=== PATIENT | female | born 1990 | race Caucasian/White ===

== ENCOUNTER → 2017-05-26 | Outpatient (CLI) | payer BC ==
--- NOTE | 2017-05-30 10:08 | MRI ---
HISTORY: Low back pain. Patient has history of fall with fracture of coccyx 8 years ago Study: Noncontrast MRI lumbar spine Comparison: No priors Technique: Multiplanar multi-sequence MRI of the lumbar spine was obtained. Sagittal T1, sagittal T2 , and stir weighted images, axial T1, and axial T2 images were obtained. Findings: The lumbar spine demonstrates normal alignment with the expected signal characteristics of the bone m arrow. The conus of the cord terminates normally. There is disc desiccation at L5-S1. T12 -- L1: Unremarkable L1 -- L2: Unremarkable L2 -- L3: Unremarkable L3 -- L4: Unremarkable L4 -- L5: Tiny midline disc protrusion without nerve root impingement L5 -- S1: Disc desiccation with a broad subarticular left-sided disc protrusion with foraminal stenos is and likely impingement of the exiting nerve root. No central spinal stenosis is seen. The right ne ural foramina is patent. IMPRESSION: No fracture or subluxation. Disc desiccation with a broad left subarticular disc protrusion with foraminal stenosis and likely ex iting nerve root impingement. These findings are present L5-S1. Reported By:
== END | disposition home or self-care (01) ==
LOC: RAD 15:16
PROVIDERS: ATTEND Internal Medicine
DX: M54.5 Low back pain (principal); M48.07 Spinal stenosis, lumbosacral region
CPT/HCPCS: 72148

== ENCOUNTER 2022-01-22 06:17 | Inpatient (IN) ==
[2022-01-22] MEDS ORDERED: BETADINE SOLN ONE (06:27)
[2022-01-22] MEDS ORDERED: D5 1/2 NS 1,000 ML 1,000 ML IV ONE (06:27)
[2022-01-22] MEDS ORDERED: PITOCIN ONE (06:27)
[2022-01-22] MEDS ORDERED: D5 LR + PITOCIN 10 UNITS/L 10 UNITS/1,000 ML BAG IV ONE (06:28)
[2022-01-22] MEDS ORDERED: D5 1/2 NS 1,000 mL + PITOCIN 20 UNITS/L IV 20 UNITS/1,000 ML BAG IV ONE (06:28)
[2022-01-22] MEDS ORDERED: STADOL INJ IVP PRN (06:30)
[2022-01-22] MEDS: AMPICILLIN VIAL 1 GRAM 1 G in NS 50 ML IV + SPIKE MINIBAG* 50 ML IV SCH ×3 (07:00→12:48)
[2022-01-22] MEDS ORDERED: REGLAN INJ 10 MG VIAL IVP PRN (07:01)
[2022-01-22] MEDS ORDERED: AMPICILLIN VIAL 2 GRAM 2 G in NS 100 ML IV + SPIKE MINIBAG* 100 ML IV SCH (07:01)
[2022-01-22] MEDS ORDERED: PHENERGAN INJ 25 MG IM PRN ×2 (07:01→12:37)
[2022-01-22] MEDS ORDERED: PITOCIN IVP ONE (07:01)
[2022-01-22] MEDS ORDERED: D5 LR + PITOCIN 10 UNITS/L 10 UNITS/1,000 ML BAG IV PRN (07:01)
[2022-01-22] MEDS ORDERED: NUBAIN INJ 200 MG VIAL MULTIDOSE IVP PRN (07:01)
[2022-01-22] MEDS ORDERED: D5 1/2 NS 1,000 ML 1,000 ML IV SCH (07:01)
[2022-01-22] MEDS ORDERED: MORPHINE SULFATE INJ 2 MG INJ IVP PRN (07:01)
--- NOTE | 2022-01-22 07:04 | DR.OB ---
OB Quick Note - Assessment/Plan Assessment/Plan: L&D 01/22/22 at 6:50am S-No complaint. O-Afebrile,VSS SCA=[id number] with good LTV, +accel, no decel. CTX=mild uterine irritability CVX=3cm/50%/-1/VTX AROM with clear fluid. IUPC and FSE placed. A-IUP at 39 3/7 weeks for induction +GBS Rh- P-Begin pitocin induction IV ABX in labor for +GBS Anticipate
[2022-01-22] MEDS ORDERED: AMPICILLIN VIAL 2 GRAM ONE (07:09)
[2022-01-22] MEDS ORDERED: NS 100 ML IV 100 ML ONE (07:09)
[2022-01-22] MEDS ORDERED: REGLAN INJ 10 MG VIAL ONE (07:59)
[2022-01-22] MEDS ORDERED: LR 1,000 ML IV 1,000 ML IV ONE (08:05)
[2022-01-22] MEDS ORDERED: ZOFRAN INJ 4 MG VIAL ONE (08:20)
[2022-01-22] MEDS ORDERED: FENTANYL VIAL INJ 100 mcg ONE ×2 (08:21)
[2022-01-22] MEDS ORDERED: NAROPIN EPIDURAL 0.2% 100 ML ONE (08:21)
--- NOTE | 2022-01-22 12:44 | DR.OB ---
OB Quick Note - Assessment/Plan Assessment/Plan: Delivery Note [facility] 01/22/22 at 12:20pm Patient complete and pushing. Head delivered over intact perineum. Compound presentation with left hand at head. No nuchal cord. Nose and mouth bulb suctioned. Body delivered over intact perineum. Cord clamped x 2 and cut. handed to attendant. Cord sent for gases. Placenta delivered spontaneously / intact / 3 vessel cord. No CVX / vaginal / perineal tears noted. Viable male , VTX/OA, wt=7'13" and 8/9, stable to NBN. Mother stable to RR. KSB=[id number].
[2022-01-22] MEDS ORDERED: HYPERRHO S/D (or RHOGAM) IM PRN (14:04)
[2022-01-22] MEDS ORDERED: AMBIEN PO PRN (14:04)
[2022-01-22] MEDS ORDERED: ADACEL or BOOSTRIX TDaP VACCINE IM ONE (14:04)
[2022-01-22] MEDS ORDERED: MILK OF MAGNESIA PO PRN (14:04)
[2022-01-22] MEDS ORDERED: BETADINE SOLN TOP ONE (14:55)
[2022-01-22] MEDS: D5 1/2 NS 1,000 ML 1,000 ML with PITOCIN 20 UNITS IV SCH ×4 (15:21→23:59)
[2022-01-22] MEDS: DERMOPLAST PAIN RELIEF SPRAY TOP PRN (15:44)
[2022-01-22] MEDS: VSL#3 PO SCH ×2 (15:44→17:20)
[2022-01-22] MEDS: MOTRIN TAB 800 MG PO PRN (17:24)
[2022-01-23] MEDS: MOTRIN TAB 800 MG PO PRN (03:45)
[2022-01-23] MEDS: DERMOPLAST PAIN RELIEF SPRAY TOP PRN (03:46)
[2022-01-23 04:54] LABS: HEMOGLOBIN 10.1 g/dL (12.0-16.0)
[2022-01-23] MEDS: D5 1/2 NS 1,000 ML 1,000 ML with PITOCIN 20 UNITS IV SCH ×2 (05:57)
[2022-01-23] MEDS ORDERED: PRENATAL PLUS PO SCH (09:00)
[2022-01-23] MEDS: VSL#3 PO SCH (09:14)
[2022-01-23 14:45] VITALS: BP 113/70
== END 2022-01-23 14:23 | disposition home or self-care (01) | DRG 807 ==
LOC: LD 06:17 → MED/SURG 14:07
PROVIDERS: ADMIT Specialist; ATTEND Specialist
DX: Z37.0 Single live birth; O98.82 Other maternal infectious and parasitic diseases complicating childbirth; Z20.822 Contact with and (suspected) exposure to COVID-19; Z3A.39 39 weeks gestation of pregnancy; B95.1 Streptococcus, group B, as the cause of diseases classified elsewhere